=== PATIENT | male | born 1960 | race Caucasian/White ===

== ENCOUNTER → 2020-08-12 | Outpatient (CLI) | payer OTHER ==
[~2020-08-12] MED LIST: ASPI81TA26 PO; FENO160T10 PO; LISI-898 PO; OMEP40CA97 PO; PRAV40TA2 PO
== END ==
LOC: M LABSMTC 08:11
PROVIDERS: ATTEND Anesthesiology
DX: Z01.812 Encounter for preprocedural laboratory examination (principal); Z20.822 Contact with and (suspected) exposure to COVID-19

== ENCOUNTER 2020-08-17 06:42 | Day surgery (SDC) | payer OTHER ==
[~2020-08-17] VITALS: Ht 177.8 cm; Wt 88.4 kg
[2020-08-17] MEDS ORDERED: NS 1,000 ML IV ONE (07:00)
[2020-08-17] MEDS ORDERED: [UNRECOGNIZED DRUG - OTHER] PA (07:03)
[2020-08-17] MEDS ORDERED: LIDOCAINE 2% 100MG/5ML SDV (FOR ANES.) As Ordered ONE (07:21)
[2020-08-17] MEDS ORDERED: propofoL 200 MG/20 ML VIAL As Ordered ONE (07:21)
--- NOTE | 2020-08-17 07:46 | ROOR ---
Patient Name: Taco Shah Procedure Date: 08/17/2020 7:27 AM Date of : 1960 Age: 59 Room: [facility] Gender: Male Note Status: Finalized Procedure: Total Colonoscopy to Cecum + ileoscopy Indications: Screening for colorectal malignant neoplasm Providers: Dom Dunbar MD Referring MD: Yoanna Day NP Requesting Provider: Medicines: Monitored Anesthesia Care Complications: No immediate complications. Procedure: Pre-Anesthesia Assessment: - The heart rate, respiratory rate, oxygen saturations, blood pressure, adequacy of pulmonary ventilation, and response to care were monitored throughout the procedure. The Colonoscope was introduced through the anus and advanced to the terminal ileum, with identification of the appendiceal orifice and IC valve. The colonoscopy was performed without difficulty. The patient tolerated the procedure well. The quality of the bowel preparation was excellent. Findings: The perianal and digital rectal examinations were normal. Non-bleeding internal hemorrhoids were found during retroflexion. The hemorrhoids were small and Grade I (internal hemorrhoids that do not prolapse). Multiple small and large-mouthed diverticula were found in the recto-sigmoid colon, sigmoid colon and descending colon. The exam was otherwise without abnormality on direct and retroflexion views. The terminal ileum appeared normal. The exam was otherwise without abnormality. Impression: - Non-bleeding internal hemorrhoids. - Diverticulosis in the recto-sigmoid colon, in the sigmoid colon and in the descending colon. - The examination was otherwise normal on direct and retroflexion views. - The examined portion of the ileum was normal. - The examination was otherwise normal. - No specimens collected. - The exam was otherwise normal to the cecum. Recommendation: - Patient has a contact number available for emergencies. The signs and symptoms of potential delayed complications were discussed with the patient. Return to normal activities tomorrow. Written discharge instructions were provided to the patient. - High fiber diet. - Discharge patient to home. - Continue present medications. - Repeat colonoscopy in 10 years for screening purposes. - Return to referring physician. - The findings and recommendations were discussed with the patient. Procedure Code(s): --- Professional --- 43203, Colonoscopy, flexible; diagnostic, including collection of specimen(s) by brushing or washing, when performed (separate procedure) Diagnosis Code(s): --- Professional --- Z12.11, Encounter for screening for malignant neoplasm of colon K64.0, First degree hemorrhoids K57.30, Diverticulosis of large intestine without perforation or abscess without bleeding CPT copyright 2019 [employer]. All rights reserved. The codes documented in this report are preliminary and upon recapper review may be revised to meet current compliance requirements. Dom Dunbar MD Dom Dunbar MD 08/17/2020 7:46:07 AM Electronically signed by Dom Dunbar MD Number of Addenda: 0 Note Initiated On: 08/17/2020 7:27 AM Estimated Blood Loss: Estimated blood loss: none.
[2020-08-17 08:10] VITALS: BP 119/67
== END 2020-08-17 08:13 | disposition home or self-care (01) ==
LOC: M OPP 06:42
PROVIDERS: ATTEND Internal Medicine Gastroenterology
DX: Z12.11 Encounter for screening for malignant neoplasm of colon (principal); K57.30 Diverticulosis of large intestine without perforation or abscess without bleeding; K64.0 First degree hemorrhoids; Z79.82 Long term (current) use of aspirin; Z79.899 Other long term (current) drug therapy; Z88.8 Allergy status to other drugs, medicaments and biological substances

== ENCOUNTER → 2023-07-09 | Outpatient (CLI) | payer OTHER ==
[~2023-07-09] MED LIST changes: -LISI-898 PO; +LISI5TAB11 PO; +OMEP40CA4 PO; -OMEP40CA97 PO; +[UNRECOGNIZED DRUG - OTHER] PA
== END ==
LOC: M WUC 14:11
PROVIDERS: ATTEND Nurse Practitioner Adult Health
DX: M25.561 Pain in right knee (principal)

== ENCOUNTER → 2023-09-30 | Outpatient (CLI) | payer OTHER | LOC: M EKG 15:06 | PROVIDERS: ATTEND Orthopaedic Surgery | DX: Z01.818 Encounter for other preprocedural examination (principal) ==